=== PATIENT | female | born 1975 | race Caucasian/White ===

== ENCOUNTER 2017-11-05 20:10 | Emergency (ER) | payer MEDICAID ==
[~2017-11-05] VITALS: Ht 157.5 cm; Wt 59.0 kg
[2017-11-05 20:22] VITALS: BP 120/90
--- NOTE | 2017-11-05 20:28 | NUR ---
TO LOBBY, MAR ARAGON, A/W BED,KRISTEL NOTED
--- NOTE | 2017-11-05 21:10 | NUR ---
EKG DONE, NSR ERMD NOTED
--- NOTE | 2017-11-05 21:32 | NUR ---
PT TAKEN TO ER BED 1
--- NOTE | 2017-11-05 21:33 | NUR ---
PT TAKEN TO RADIOLOGY
--- NOTE | 2017-11-05 21:50 | NUR ---
Pt returned from x-ray and placed into bed 1.
--- NOTE | 2017-11-05 22:04 | NUR ---
41/F c/o right sided facial numbness since this afternoon. Pt noted unable to shut her right eye and complaints of numbness to right side of face and lips. 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 Denies medical hx. AOX4, clear speech, kinyarwanda speaking. VSS.
--- NOTE | 2017-11-05 22:06 | NUR ---
Dr. Diaz at bedside.
[2017-11-05 22:30] LABS: HEMOGLOBIN 13.2 g/dL (12.0-16.0); MEAN CORPUSCULAR HEMOGLOBIN 30 pg (27-31); MEAN CORPUSCULAR HGB CONC 33 g/dL (33-37); MEAN CORPUSCULAR VOLUME 89 fL (80-94); PLATELET COUNT (AUTO) 189 K/uL (140-450); RED BLOOD CELL COUNT(AUTO) 4.48 MIL/uL (4.20-5.40); WHITE BLOOD COUNT (AUTO) 9.1 K/uL (4.8-10.8)
[2017-11-05 22:41] LABS: ANION GAP 11.3 (8-16); CARBON DIOXIDE 27.9 mmol/L (21-32); CREATININE 0.9 mg/dL (0.6-1.3); POTASSIUM 4.2 mmol/L (3.5-5.1)
[2017-11-05 22:45] VITALS: BP 137/97
[2017-11-05 22:45] LABS: APPEARANCE,URINE CLEAR (CLEAR); BILIRUBIN,URINE NEGATIVE (NEGATIVE); BLOOD, URINE NEGATIVE (NEGATIVE); COLOR,URINE YELLOW (YELLOW); LEUKOCYTE ESTERASE ,URINE NEGATIVE (NEGATIVE); NITRITE, URINE NEGATIVE (NEGATIVE); PH,URINE 7.5 (5.0-9.0); UGLUCOSE NEGATIVE (NEGATIVE)
--- NOTE | 2017-11-05 22:45 | NUR ---
Patient discharged with v/s stable. Written and verbal after care instructions given and explained. Patient alert, oriented and verbalized understanding of instructions. Ambulatory with steady gait. All questions addressed prior to discharge. ID band removed. Patient advised to follow up with PMD. Rx of Artifical Tears, Acyclovir 400mg, Prednisone 20mg, and Motrin 600mg given. Patient educated on indication of medication including possible reaction and side effects. Copy of CT scan provided to patient for follow up care. Opportunity to ask questions provided and answered.
[2017-11-05 22:47] LABS: ALBUMIN 3.9 g/dL (3.4-5.0); TOTAL BILIRUBIN 0.3 mg/dL (0.0-1.0)
[2017-11-05 22:50] LABS: EOSINOPHILS % (MANUAL) 1 % (0-4); LYMPHOCYTES % (MANUAL) 30 % (20-46); MONOCYTES % (MANUAL) 5 % (5-12)
[2017-11-05 22:55] LABS: PROTHROMBIN TIME 10.4 secs (10.8-13.4)
[2017-11-05 23:00] LABS: RBC,URINE 0-5 (RARE) /HPF (0-5)
== END 2017-11-05 22:45 | disposition home or self-care (01) ==
LOC: MED 20:10
DX: G51.0 Bell's palsy (principal)
CPT/HCPCS: 36415; 70450; 71046; 80053; 81001; 81025; 83735; 84484; 85025; 85610; 85730; 87086; 99285